=== PATIENT | female | born 1940 | race Caucasian/White ===

== ENCOUNTER → 2016-04-19 | Outpatient (CLI) | payer BC, MEDICARE ==
[2015-09-01 09:23] VITALS: BP 148/63
[~2016-04-19] MED LIST: ALLO300T PO; ASCO100065 PO; CHOL10003 PO; COLE1TAB2 PO; CYAN10005 PO; FURO20TA3 PO; GLIM4TAB2 PO; IRON1TAB PO; LOSA100T6 PO; METF10002 PO; METO-269 PO; OMEG1CAP6 PO; POTA20TA4 PO; SAXA5TAB PO; SIMV20TA3 PO
--- NOTE | 2016-04-19 16:28 | RAD ---
PROCEDURE MRI lumbar spine without contrast. HISTORY Low back pain and bilateral leg weakness for 4 months, greater on the left. No prior surgery. TECHNIQUE Sagittal T1, sagittal T2, sagittal STIR, axial T1, and axial T2 sequences are provided. COMPARISON None. FINDINGS Retrolisthesis at T12-L1 measures 3 millimeters. Anterolisthesis at L4-L5 measures 9 millimeters. Mild endplate edema along the superior endplate of L5 is probably degenerative in nature, minimal edema in the inferior endplate of L4 noted as well. There is no worrisome marrow lesion. There are probably vacuum discs at L3-L4 and L4-L5. There is diffuse disc desiccation. There appears to be partial partial fusion across T11-T12, some collapse of these 2 vertebral bodies. There is no edema at this level. The conus medullaris is normal in signal intensity and in position. The numbering system assumes 5 lumbar type vertebral bodies. Findings by individual level are as follows: T11-T12: Disc osteophyte complex and facet hypertrophy are noted. Thecal sac is minimally compressed, midline AP diameter 11 millimeters. There is minimal right foraminal narrowing. T12-L1: Mild disc bulge and minimal facet hypertrophy are noted with mild bilateral foraminal narrowing. L1-L2: Minimal disc bulge and facet hypertrophy are noted without canal or foraminal compromise. L2-L3: Minimal disc bulge and facet hypertrophy are noted without canal or foraminal compromise. L3-L4: There is a diffuse disc bulge and there is facet and ligamentum flavum hypertrophy. Midline AP diameter of the thecal sac is narrowed to 7-8 millimeters. There is mild lateral recess narrowing bilaterally. There is mild to moderate bilateral foraminal narrowing. Spur from the left facet joint contacts the exiting nerve root minimally. L4-L5: In addition to the anterolisthesis there is a diffuse disc bulge. There is facet and ligamentum flavum hypertrophy. There is fluid in the facet joints. There is severe canal stenosis with minimal CSF surrounding the nerve roots at this level. There is lateral recess narrowing bilaterally, high-grade, would explain an L5 radiculopathy on either side. There is also high-grade bilateral foraminal narrowing with both L4 nerve roots compressed. L5-S1: Minimal disc bulge is noted. Central annular fissure is present. There is facet hypertrophy. There is no canal stenosis. Exiting nerve root on the right is contacted by a spur from the facet joint. Canal stenosis is mild. Foraminal narrowing on the left is moderate, exiting nerve root contacted by a spur from the facet joint on the left as well. IMPRESSION Degenerative changes in the lumbar spine with high-grade canal stenosis at L4-L5. Foraminal narrowing noted from L3-L4 through L5-S1. Electronically signed by: Carlos Reynolds MD (Apr 19, 2016 16:26:56)
== END | disposition home or self-care (01) ==
LOC: MRI 14:00
PROVIDERS: ATTEND Physician Assistant Surgical
DX: M51.36 Other intervertebral disc degeneration, lumbar region (principal); R53.1 Weakness; M54.42 Lumbago with sciatica, left side; M54.41 Lumbago with sciatica, right side
CPT/HCPCS: 72148

== ENCOUNTER → 2016-05-09 | Outpatient (CLI) | payer BC, MEDICARE ==
[2015-09-01 09:23] VITALS: BP 148/63
[~2016-05-09] MED LIST changes: +ASPI-482 PO
== END | disposition home or self-care (01) ==
LOC: PNCL 07:53
PROVIDERS: ATTEND Anesthesiology
DX: M48.06 Spinal stenosis, lumbar region (principal)
CPT/HCPCS: G0463

== ENCOUNTER → 2016-05-20 | Outpatient (CLI) | payer BC, MEDICARE ==
[2015-09-01 09:23] VITALS: BP 148/63
[~2016-05-20] MED LIST changes: +IOHEXOL 180 MG/ML 10 ML VIAL. ONE; +methylPREDNISolone ACETATE 40 MG/ML VIAL. ONE; +methylPREDNISolone ACETATE 80 MG/ML VIAL. ONE
--- NOTE | 2016-05-21 05:15 | PAIN ---
DATE OF SERVICE: 05/20/2016 PROGRESS NOTE DIAGNOSES: Lumbar radiculopathy with lumbar degenerative disk disease and lumbar spinal stenosis. HISTORY OF PRESENT ILLNESS: The patient is a 75-year-old female who returns for followup status post initial evaluation and completion of physical therapy. She is unable to complete all because the pain in her left leg has become so severe that she is unable to participate in the satisfactory measure and capacity with the physical therapy. The patient returns, and her pain is a 4 to 5 on a scale of 10 in the low back, left lower extremity, primarily occasionally in the right leg as well, but essentially unchanged in the left side. The patient reports aches and has dull shooting pain in the left leg, mostly in the posterolateral aspect of the thigh, anterior thigh, medial lower leg, more on the left than the right, worse with weightbearing, much worse with walking and standing. The patient reports no new motor or sensory deficits, no new bowel or bladder incontinence or other complaints. PHYSICAL EXAMINATION: VITAL SIGNS: The patient's blood pressure 120/49, pulse 70, respirations 18, temperature 98.1 degrees Fahrenheit. Height is 4 feet 9 inches, weight is 188 pounds. GENERAL: The patient is awake, alert, oriented, appropriate, very pleasant demeanor. HEENT: Head shows normocephalic, atraumatic. Extraocular muscles are intact and symmetrical. Oral cavity, mucous membranes are moist and pink. Dentition is intact. NECK: Shows anterior throat supple without palpable lymphadenopathy noted. Swallow reflex is symmetrical. CHEST: Shows normal on inspection. Breath sounds are clear to auscultation bilaterally. HEART: Shows S1 and S2 clear. ABDOMEN: Soft, nontender, nondistended. No palpable organomegaly. There is no rebound or guarding demonstrated. BACK: Shows spine grossly midline. Slight exaggeration of thoracic kyphosis and mild flattening of lumbar lordotic curvature. Lumbar paraspinous muscle shows some moderate tenderness with palpation, but only diffusely bilaterally. The patient has good rotational motion as well as extension and flexion without difficulty in the lumbar spine. EXTREMITIES: Lower extremities showed deep tendon reflexes 1+ in the patellar and tendocalcaneus tendons. Motor exam is approximately 4/5 on the right and 3/5 on the left with quadriceps and hamstring flexion. Options were discussed with the patient. The patient's old chart was reviewed as her current medication regimen updated. Current review of systems updated today as well. We will proceed with a lumbar epidural steroid injection today with fluoroscopic guidance. Risks were again discussed including, but not limited to bleeding, infection, possibility of epidural hematoma, subsequent neurologic compromise, dural puncture, headaches, spinal cord and/or nerve damage, side effects of steroid medication and poor results regarding pain control. The patient understands and wishes to proceed. The patient will return to clinic in approximately 2 weeks for followup, was counseled on return appointment, activity level and side effects to be aware of. DIAGNOSES: Lumbar radiculopathy with lumbar degenerative disk disease, lumbar spinal stenosis. PROCEDURE: Lumbar epidural steroid injection, translaminar approach at the L4-L5 level using C-arm fluoroscopic guidance under sterile prep and drape using local anesthetic. MEDICATION INJECTED: 120 mg of Depo-Medrol plus 10 mL of preservative-free normal saline and 2 mL of Isovue contrast. CONDITION AT DISCHARGE: Stable. The patient tolerated procedure well, had no complications. VINEET DAUGHERTY MD DR: DOTTIE/celeste JOB#: [id number] / [id number]
== END | disposition home or self-care (01) ==
LOC: PNCL 09:22
PROVIDERS: ATTEND Anesthesiology
DX: M51.16 Intervertebral disc disorders with radiculopathy, lumbar region (principal); M48.06 Spinal stenosis, lumbar region; E78.00 Pure hypercholesterolemia, unspecified; I10 Essential (primary) hypertension; M19.90 Unspecified osteoarthritis, unspecified site; E11.9 Type 2 diabetes mellitus without complications; Z87.39 Personal history of other diseases of the musculoskeletal system and connective tissue; Z90.49 Acquired absence of other specified parts of digestive tract; Z98.51 Tubal ligation status
CPT/HCPCS: 62323; J1030; J1040

== ENCOUNTER → 2016-06-10 | Outpatient (CLI) | payer BC, MEDICARE ==
[2015-09-01 09:23] VITALS: BP 148/63
[~2016-06-10] MED LIST changes: -IOHEXOL 180 MG/ML 10 ML VIAL. ONE; -methylPREDNISolone ACETATE 40 MG/ML VIAL. ONE; -methylPREDNISolone ACETATE 80 MG/ML VIAL. ONE
--- NOTE | 2016-06-10 23:43 | PAIN ---
DATE OF SERVICE: 06/10/2016 DIAGNOSES: Lumbar radiculopathy with lumbar spinal stenosis, lumbar degenerative disk disease. HISTORY OF PRESENT ILLNESS: The patient is a 75-year-old female who returns for followup status post lumbar epidural steroid injection x 1. The patient reports approximately 50% improvement and is still doing her physical therapy, which she feels is helpful as well. The patient reports she is doing very well in her mind. The pain is still present in the low back, but worse with inclement weather and rain, which we had recently. The patient reports otherwise she is doing very well. She has had 2 days ____ she was here last, she had 0 pain, but other days, she still has some 1-2 on a scale of 10 pain in the low back itself, which is aching and dull in description. Leg is doing much better. However, the patient reports no new motor or sensory deficits, no new bowel or bladder incontinence. Very pleased with the progress and would like to complete her physical therapy before considering any other injections. PHYSICAL EXAMINATION: VITAL SIGNS: The patient's blood pressure 126/58, pulse 59, respirations 18, temperature 97.9 degrees Fahrenheit. Height is 4 foot 9 inches, weighs 188 pounds. GENERAL: The patient is awake, alert, oriented, appropriate, very pleasant demeanor. HEENT: Shows normocephalic, atraumatic. The patient wears eye glasses. Extraocular movements are intact and symmetrical. Oral cavity, mucous membranes moist and pink. Dentition is intact. NECK: Shows anterior throat supple without palpable lymphadenopathy noted. Swallow reflex is symmetrical. CHEST: Shows normal on inspection. Breath sounds are clear to auscultation bilaterally. HEART: Shows S1 and S2 clear. ABDOMEN: Soft, nontender, nondistended. No palpable organomegaly is noted. No rebound or guarding demonstrated. BACK: Shows spine grossly midline. Slight exaggeration of thoracic kyphosis and some mild tenderness with palpation in the lumbar paraspinous musculature diffusely, but symmetrical for the most part bilaterally without evidence of atrophy or hypertrophy. The patient shows good rotation and motion of the lumbar spine, both laterally as well as extension and flexion without significant pain or discomfort. EXTREMITIES: The patient's lower extremities showed deep tendon reflexes 1+ in the patellar and tendo calcaneus tendons. Motor exam is approximately 4 on scale of 5 on the right lower extremity and 3/5 in the left ankle with dorsiflexion, extension, quadriceps and hamstring flexion are approximately 4/5 and equal bilaterally. Options were discussed with the patient and the patient's old chart was reviewed as her current medication regimen and updated. Current review of systems updated to date as well. We will hold on any further injections until she completes physical therapy as prescribed. She has about 6 more sessions and will follow up after the physical therapy is completed. Consider an additional injection at that time if necessary. The patient understands and agrees and will follow up as scheduled. VINEET DAUGHERTY MD DR: DOTTIE/celeste JOB#: [id number] / [id number]
== END | disposition home or self-care (01) ==
LOC: PNCL 08:08
PROVIDERS: ATTEND Anesthesiology
DX: M51.16 Intervertebral disc disorders with radiculopathy, lumbar region (principal); M48.06 Spinal stenosis, lumbar region
CPT/HCPCS: G0463

== ENCOUNTER → 2016-07-12 | Outpatient (CLI) | payer BC, MEDICARE ==
[2015-09-01 09:23] VITALS: BP 148/63
[~2016-07-12] MED LIST changes: +IOHEXOL 180 MG/ML 10 ML VIAL. ONE; +methylPREDNISolone ACETATE 40 MG/ML VIAL. ONE; +methylPREDNISolone ACETATE 80 MG/ML VIAL. ONE
--- NOTE | 2016-07-12 23:40 | PAIN ---
DATE OF SERVICE: 07/12/2016 DIAGNOSES: Lumbar radiculopathy with lumbar spinal stenosis, lumbar degenerative disk disease. HISTORY OF PRESENT ILLNESS: The patient is a 75-year-old female who returns for followup status post lumbar epidural steroid injection x 1 on 06/10/2016. The patient reports she did well for about a month, she had about 50% improvement overall. Still pain in the low back and left greater than right lower extremity with walking and standing. The patient has difficulty sleeping she sleeps on her stomach, she feels much better and is getting better sleep. The patient reports, "everything feels tight" and left leg does have the weakness when she is standing and walking. She is using a walker to ambulate currently and has it with her today. The patient reports the pain is across the low back and the bilateral areas of the low back and the gluteus bilaterally and in the left leg posterior lateral aspect, lateral anterior thigh, medial thigh as well as the posterior thigh on the left side as aching, dull, sharp, shooting and tight radiating off and on, but not constant. The patient reports it anywhere from 3-8 on a scale of 10, 8 with activity, standing more than about 5-10 minutes. The patient reports no new motor or sensory deficits, no new bowel or bladder incontinence or other complaints. PHYSICAL EXAMINATION: VITAL SIGNS: Today, the patient's blood pressure 144/67, pulse 51, respirations 20, temperature 97.6 degrees Fahrenheit, height is 58 inches and the weight is 191 pounds. GENERAL: The patient is awake, alert, oriented, appropriate, very pleasant demeanor. HEENT: Head shows normocephalic, atraumatic. Extraocular movements are intact and symmetrical. Oral cavity, mucous membranes are moist and pink. Dentition is intact. NECK: Shows anterior throat supple without palpable lymphadenopathy noted. Swallow reflex is symmetrical. CHEST: Shows normal on inspection. Breath sounds are clear to auscultation bilaterally. HEART: Shows S1 and S2, clear. No murmurs auscultated. ABDOMEN: Soft, nontender, nondistended. No palpable organomegaly is noted. BACK: Shows spine grossly midline. Slight exaggeration of thoracic kyphosis and mild flattening of lumbar lordotic curvature. Lumbar paraspinous musculature shows symmetrical on appearance with palpation shows some [id number] tenderness in the low lumbar distribution without significant radiation. No asymmetry. Muscle girth is normal on palpation and symmetrical. The patient does show good rotational motion of lumbar spine, both laterally as well as extension and flexion without significant pain or difficulty. EXTREMITIES: Lower extremities show deep tendon reflexes 1+ in the patellar and tendo calcaneus tendons are equal. Motor exam is approximately 4 on a scale of 5 left ankle flexion now which is stronger than on previous exam and 4/5 on the right as well and is symmetrical. Options were discussed with the patient and the patient's old chart was reviewed as her current medication regimen updated. Current review of systems updated to date as well. We will proceed with a second lumbar epidural steroid injection with fluoroscopic guidance. Risks were again discussed including, but not limited to bleeding, infection, possibility of epidural hematoma, subsequent neurologic compromise, dural puncture, headaches, spinal cord and/or nerve damage, side effects of steroid medications, and poor results regarding pain control. The patient understands and wishes to proceed. The patient will return to clinic in approximately 2 weeks for followup. She was counseled on return appointment, activity level and side effects to be aware of. DIAGNOSES: Lumbar radiculopathy with lumbar degenerative disk disease and lumbar spinal stenosis. PROCEDURE: Lumbar epidural steroid injection in translaminar approach at the L4-L5 level using C-arm fluoroscopic guidance under sterile prep and drape using local anesthetic Medication injected 120 mg Depo-Medrol plus 10 mL of preservative-free normal saline and 2 mL Isovue for contrast. Condition on discharge is stable. The patient tolerated procedure well, had no complications. VINEET DAUGHERTY MD DR: DOTTIE/celeste JOB#: [id number] / [id number]
== END | disposition home or self-care (01) ==
LOC: PNCL 08:18
PROVIDERS: ATTEND Anesthesiology
DX: M51.16 Intervertebral disc disorders with radiculopathy, lumbar region (principal); M48.06 Spinal stenosis, lumbar region; E78.00 Pure hypercholesterolemia, unspecified; I10 Essential (primary) hypertension; E11.9 Type 2 diabetes mellitus without complications; M19.90 Unspecified osteoarthritis, unspecified site; Z90.49 Acquired absence of other specified parts of digestive tract; Z98.51 Tubal ligation status; Z98.41 Cataract extraction status, right eye; Z98.42 Cataract extraction status, left eye
CPT/HCPCS: 62323; J1030; J1040

== ENCOUNTER → 2016-10-15 | Outpatient (CLI) | payer BC ==
[2015-09-01 09:23] VITALS: BP 148/63
[~2016-10-15] MED LIST changes: -IOHEXOL 180 MG/ML 10 ML VIAL. ONE; +METF-620 PO; -METF10002 PO; -methylPREDNISolone ACETATE 40 MG/ML VIAL. ONE; -methylPREDNISolone ACETATE 80 MG/ML VIAL. ONE
--- NOTE | 2016-10-16 06:45 | PAIN ---
DATE OF SERVICE: 10/15/2016 PROGRESS NOTE FOR PAIN CLINIC DIAGNOSES: Lumbar radiculopathy with lumbar degenerative disk disease and lumbar spinal stenosis. HISTORY OF PRESENT ILLNESS: The patient is a 76-year-old female who returns for followup status post lumbar epidural steroid injection x 2. The patient reports she did well after her first injection, but the last one did not help. In fact, her pain was somewhat increased from the injection on 07/12/2016. The patient reports that this is improving with some physical therapy now to fairly a significant extent. She is quite pleased that she has only had 2 physical therapy treatments so far, but is doing much better, still some pain in the low back, right lower extremity and left lower extremity, worse on the right side, tingling, burning, aching, sharp, shooting, radiating, but off and on. It is only an 8 on a scale of 10 at its worse. It is a 3 on a scale of 10 currently. The patient reports otherwise doing fairly well. Still having to use a walker with ambulation. Reports that she awakens from sleep at night occasionally from pain, but not every night, but she repositions and gets back to sleep fairly quickly. The patient reports no new motor or sensory deficits. No new bowel or bladder incontinence or other complaints. She does not wish any further injections at this time. We will order physical therapy progress and see how she does with this as well as some home exercises that she is doing. PHYSICAL EXAMINATION: VITAL SIGNS: Today, the patient's blood pressure is 140/66, pulse 61, respirations 18, temperature 97.9 degrees Fahrenheit. Weight is 190 pounds, height is 58 inches. GENERAL: The patient is awake, alert, oriented, appropriate, very pleasant demeanor. HEENT: Head shows normocephalic, atraumatic. Extraocular movements are intact and symmetrical. Oral cavity, mucous membranes are moist and pink. Dentition is intact. NECK: Shows anterior throat supple without palpable lymphadenopathy noted. Swallow reflex is symmetrical. CHEST: Shows normal on inspection. Breath sounds are clear bilaterally. HEART: Shows S1 and S2 clear. BACK: Shows spine grossly in the midline. Lumbar paraspinous muscle shows some moderate tenderness to palpation, but only diffusely without atrophy or hypertrophy. EXTREMITIES: Lower extremities: Show deep tendon reflexes 1+ in the patellar and tendo calcaneus tendons. Motor exam is strong with approximately 4 on a scale of 5, but equal and symmetrical with dorsiflexion and extension. PLAN: Options were discussed with the patient. The patient's old chart was reviewed as her current medication regimen updated, current review of systems updated today as well. We will hold on any further injections. She will continue physical therapy as noted, will do her exercises and increase her activity as tolerated at home. We will follow up after physical therapy is completed if desired. VINEET DAUGHERTY MD DR: DOTTIE/celeste JOB#: [id number] / [id number]
== END | disposition home or self-care (01) ==
LOC: PNCL 10:00
PROVIDERS: ATTEND Anesthesiology
DX: M54.41 Lumbago with sciatica, right side (principal)
CPT/HCPCS: 99212

== ENCOUNTER → 2020-02-29 | Outpatient (CLI) | payer BC ==
[2015-09-01 09:23] VITALS: BP 148/63
[~2020-02-29] MED LIST changes: +CYAN-25 PO; -CYAN10005 PO; -GLIM4TAB2 PO; +GLIM4TAB8 PO; +LOSA100T14 PO; -LOSA100T6 PO; -METF-620 PO; +METF10007 PO; +SIMV20TA18 PO; -SIMV20TA3 PO
--- NOTE | 2020-02-29 15:59 | CARD ---
MR#: [id number] Date of Study: 02/29/2020 Ordering Physician: ROSALBA HOLT, Referring Physician: ROSALBA HOLT, Tech: Renea Little ANANYA APPROVED REPORT EXAM: Two-dimensional and M-mode echocardiogram with Doppler and color Doppler. Other Information Quality : AdequateHR: 67bpm Rhythm : Irregular INDICATION History of Afib. (Heart rate ranged from 40s-70s) 2D DIMENSIONS RVDd3.5 (2.9-3.5cm)IVSd1.3 (0.7-1.1cm) Aortic Root(2D)2.8 (2.0-3.7cm)LVDd4.8 (3.9-5.9cm) LVOT Diameter2.0 (1.8-2.4cm)PWd1.2 (0.7-1.1cm) LVDs3.0 (2.5-4.0cm)FS (%) 37.2 % SV73.2 mlLVEF(%)67.0 (>50%) Aortic Valve AoV Peak Alejandro.124.1cm/Nader Peak GR.6.2mmHg LVOT Peak Alejandro.65.3cm/sAVA (VMAX)1.61cm2 Mitral Valve MV E Umvzqpzd36.7cm/sMV DECEL [id number] MV A Ctlozyqm51.9cm/sE/A Ratio1.7 MV A Tusphgbh13nd Pulmonary Valve PV Peak Raudcbaw26.5cm/s Tricuspid Valve TR P. Urikjtfp074yp/sRAP HKMCHHSM69pqHw TR Peak Gr.42mmHg Pulmonary Vein S1 Hyncxxqy46.9cm/sD2 Wgetxatv89.3cm/s LEFT VENTRICLE The left ventricle is normal size. There is mild concentric left ventricular hypertrophy. Left ventri irma systolic function is normal. The Ejection Fraction is 60-65%. There is normal LV segmental wall m otion. RIGHT VENTRICLE The right ventricle is normal size. The right ventricular systolic function is normal. ATRIA The left atrium is severely dilated. The right atrium size is normal. The interatrial septum is intac t with no evidence for an atrial septal defect or patent foramen ovale as noted on 2-D or Doppler papi ging. AORTIC VALVE The aortic valve is normal in structure and function. Leaflets are mildly thickened and calcified. No aortic regurgitation. No aortic valvular stenosis. MITRAL VALVE The mitral valve is mildly thickened. Moderate mitral annular calcification. There is no mitral valve stenosis. Mild mitral regurgitation. TRICUSPID VALVE The tricuspid valve is normal in structure and function. Mild to moderate tricuspid regurgitation. Th e PA pressure was estimated at 50 mmHg. PULMONIC VALVE The pulmonary valve is normal in structure and function. Ttrace pulmonic valvular regurgitation. GREAT VESSELS The aortic root is normal in size. The ascending aorta is normal in size. The IVC is dilated and kaveh apses >50% with inspiration. PERICARDIAL EFFUSION There is no evidence of significant pericardial effusion. Critical Notification Critical Value: No <Conclusion> Left ventricle systolic function is normal. The Ejection Fraction is 60-65%. There is normal LV segmental wall motion. Mild mitral regurgitation. Mild to moderate tricuspid regurgitation. The PA pressure was estimated at 50 mmHg. There is no evidence of significant pericardial effusion. Signed by : Rosalba Holt, Electronically Approved : 02/29/2020 15:59:14
== END ==
LOC: ECHO 12:21
PROVIDERS: ATTEND Internal Medicine Cardiovascular Disease
DX: I08.3 Combined rheumatic disorders of mitral, aortic and tricuspid valves (principal); I48.0 Paroxysmal atrial fibrillation
CPT/HCPCS: 93306

== ENCOUNTER 2020-11-13 08:20 | Day surgery (SDC) | payer BC ==
[~2020-11-13] VITALS: Ht 147.3 cm; Wt 71.6 kg
[~2020-11-13 08:20] MED LIST changes: +AMIO200T6 PO; +APIX5TAB PO; +BIMA2.5D EACHEYE; +CALC-71 PO; +GABA600T7 PO; +IV RINGERS,LACTATED 1000ML 1,000 ML IV SCH; +LOPE1LIQ7 PO; +METF500T16 PO; +TIZA4TAB2 PO
[2020-11-13] MEDS ORDERED: INSULIN LISPRO 100 UNIT/ML 3ML VIAL for OP,RR ONLY. SQ PRN (08:45)
[2020-11-13 08:59] VITALS: BP 132/98
[2020-11-13 09:08] LABS: BASO # 0.1 x10^3/uL (0.0-0.2); BASO % 1 % (0-3); EOS # 0.2 x10^3/uL (0.0-0.7); EOS % 4 % (0-3); HEMATOCRIT 39.5 % (36.0-47.0); HEMOGLOBIN 12.9 g/dL (12.0-15.5); LYMPH # 1.6 x10^3/uL (1.0-4.8); LYMPH % 31 % (24-48); MEAN CORPUSCULAR HEMOGLOBIN 31 pg (25-35); MEAN CORPUSCULAR HGB CONC 33 g/dL (31-37); MEAN CORPUSCULAR VOLUME 96 fL (79-100); MONO # 0.4 x10^3/uL (0.0-1.1); MONO % 8 % (0-9); NEUT # 2.9 x10^3/uL (1.8-7.7); NEUT % 56 % (31-73); PLATELET COUNT 164 x10^3/uL (140-400); RED BLOOD COUNT 4.12 x10^6/uL (3.50-5.40); RED CELL DISTRIBUTION WIDTH 13.8 % (11.5-14.5); WHITE BLOOD COUNT 5.2 x10^3/uL (4.0-11.0)
--- NOTE | 2020-11-13 09:09 | EKG ---
[facility] [address] [place] [address] Test Date: 2020-11-13 Test Time: 09:05:52 Pat Name: REBECCA COWAN Department: Room: Gender: F Orthodontic Technician: : 1940 Requested By: ROSALBA GRIFFIN Order Number: [id number] Reading MD: Measurements Intervals [place] Rate: 101 P: MA: QRS: 25 QRSD: 102 T: -54 QT: 376 QTc: 495 Interpretive Statements IRREGULAR RHYTHM, NO P-WAVE FOUND QRS(T) CONTOUR ABNORMALITY CONSISTENT WITH ANTEROSEPTAL INFARCT AGE UNDETERMINED ST & T ABNORMALITY, CONSIDER INFERIOR ISCHEMIA OR LEFT VENTRICULAR STRAIN ABNORMAL ECG RI6.02 No previous ECG available for comparison
[2020-11-13 09:20] LABS: CALCIUM 9.8 mg/dL (8.5-10.1); CREATININE 1.6 mg/dL (0.6-1.0); GFR 30.9; POTASSIUM 3.9 mmol/L (3.5-5.1)
[2020-11-13 09:21] LABS: PROTHROMBIN TIME PATIENT 13.5 SEC (11.7-14.0)
[2020-11-13] MEDS ORDERED: LIDOCAINE 2% PF 5 ML VIAL. ONE (09:39)
[2020-11-13] MEDS ORDERED: PROPOFOL 10 MG/ML (20ML) VIAL. IV ONE ×2 (09:39)
--- NOTE | 2020-11-13 11:05 | EKG ---
[facility] [address] [place] [address] Test Date: 2020-11-13 Test Time: 10:36:06 Pat Name: REBECCA COWAN Department: Room: Gender: F English Composition Teacher: CITLALLI : 1940 Requested By: ROSALBA GRIFFIN Order Number: [id number] Reading MD: Measurements Intervals [place] Rate: 52 P: 64 UT: 176 QRS: 31 QRSD: 100 T: 11 QT: 442 QTc: 413 Interpretive Statements SINUS RHYTHM INCOMPLETE RIGHT BUNDLE BRANCH BLOCK OTHERWISE NORMAL ECG RI6.02 Compared to ECG 11/13/2020 09:05:52 Incomplete right bundle-branch block now present Myocardial infarct finding no longer present T-wave abnormality no longer present Possible ischemia no longer present
[2020-11-13 11:22] VITALS: BP 159/87
--- NOTE | 2020-11-13 15:10 | PDOC4 ---
Procedure Note Procedure: External cardioversion Indications: Atrial fibrillation Complications: None Procedural Details: After explaining the risk, benefits and alternative options, informed consent was obtained from patient. Anesthesiology team administered intravenous propofol for deep sedation. Patient was then given 200 J of synchronized biphasic DC shock therapy with successful conversion of patient rhythm from atrial fibrillation to sinus rhythm. Patient was hemodynamically stable without any neurological deficits at the end of procedure. She tolerated the procedure well. There were no immediate complications. Conclusions: Successful cardioversion of atrial fibrillation to sinus rhythm. ROSALBA GRIFFIN MD Nov 13, 2020 15:10
== END 2020-11-13 11:39 | disposition home or self-care (01) ==
LOC: SURG 08:20
PROVIDERS: ATTEND Internal Medicine Cardiovascular Disease
DX: I48.91 Unspecified atrial fibrillation (principal); I10 Essential (primary) hypertension; E78.00 Pure hypercholesterolemia, unspecified; E11.9 Type 2 diabetes mellitus without complications; G47.30 Sleep apnea, unspecified; M19.90 Unspecified osteoarthritis, unspecified site; Z90.49 Acquired absence of other specified parts of digestive tract; Z98.890 Other specified postprocedural states; Z79.899 Other long term (current) drug therapy; Z88.5 Allergy status to narcotic agent; Z88.2 Allergy status to sulfonamides; Z88.8 Allergy status to other drugs, medicaments and biological substances
CPT/HCPCS: 36415; 80048; 82962; 85025; 85610; 85730; 92960; 93005; J2704

== ENCOUNTER → 2021-06-26 | Outpatient (CLI) | payer BC ==
[~2021-06-26] MED LIST changes: +AMIO200T53 PO; -AMIO200T6 PO; -IV RINGERS,LACTATED 1000ML 1,000 ML IV SCH; +POTA-121 PO; -POTA20TA4 PO; +TIZA-75 PO; -TIZA4TAB2 PO
--- NOTE | 2021-06-26 16:13 | CARD ---
MR#: [id number] Date of Study: 06/26/2021 Ordering Physician: ROSALBA GRIFFIN, Referring Physician: ROSALBA GRIFFIN Tech: Do Oliver [facility] APPROVED REPORT EXAM: Two-dimensional and M-mode echocardiogram with Doppler and color Doppler. Other Information Quality : Technically LimitedHR: 70bpm Rhythm : Atrial Fibrillation INDICATION Atrial Fibrillation RISK FACTORS Hypertension Obesity 2D DIMENSIONS RVDd2.9 (2.9-3.5cm)Left Atrium(2D)4.8 (1.6-4.0cm) IVSd1.3 (0.7-1.1cm)Aortic Root(2D)3.3 (2.0-3.7cm) LVDd4.5 (3.9-5.9cm)LVOT Diameter2.1 (1.8-2.4cm) PWd1.3 (0.7-1.1cm)LVDs2.8 (2.5-4.0cm) FS (%) 38.2 %SV64.3 ml LVEF(%)68.6 (>50%) Aortic Valve AoV Peak Alejandro.96.5cm/sAoV VTI18.5cm AO Peak GR.3.7mmHgLVOT Peak Alejandro.65.1cm/s AO Mean GR.2mmHgAVA (VMAX)2.25cm2 Mitral Valve MV E Sjolvlal71.1cm/s Pulmonary Valve PV Peak Stcselzf90.6cm/s Tricuspid Valve TR P. [id number]/sTR Peak Gr.30mmHg LEFT VENTRICLE The left ventricle is normal size. There is mild concentric left ventricular hypertrophy. The left ve ntricular systolic function is low normal. The ejection fraction is estimated at 50%. RIGHT VENTRICLE The right ventricle is normal size. There is normal right ventricular wall thickness. The right ventr icular systolic function is normal. ATRIA The left atrium is mildly dilated. The right atrium is mildly dilated. The interatrial septum is inta ct with no evidence for an atrial septal defect or patent foramen ovale as noted on 2-D or Doppler im aging. AORTIC VALVE The aortic valve is normal in structure and function. Doppler and Color Flow revealed no significant aortic regurgitation. There is no significant aortic valvular stenosis. MITRAL VALVE Mitral annular calcification is mild. There is no evidence of mitral valve prolapse. There is no mitr al valve stenosis. Doppler and Color-flow revealed moderate mitral regurgitation. TRICUSPID VALVE The tricuspid valve is normal in structure and function. Doppler and Color Flow revealed mild to mode rate tricuspid regurgitation. Estimated PAP 40 mmHg. There is no tricuspid valve stenosis. GREAT VESSELS The aortic root is normal in size. The ascending aorta is normal in size. The IVC is dilated and kaveh apses <50% with inspiration. PERICARDIAL EFFUSION There is no evidence of significant pericardial effusion. Critical Notification Critical Value: No <Conclusion> The left ventricular systolic function is low normal. The ejection fraction is estimated at 50%. Moderate mitral regurgitation. Mild to moderate tricuspid regurgitation. Estimated PAP 40 mmHg. There is no evidence of significant pericardial effusion. Signed by : Rosalba Griffin, Electronically Approved : 06/26/2021 16:13:04
== END ==
LOC: ECHO 13:06
PROVIDERS: ATTEND Internal Medicine Cardiovascular Disease
DX: I08.1 Rheumatic disorders of both mitral and tricuspid valves (principal); I48.0 Paroxysmal atrial fibrillation
CPT/HCPCS: 93306; C8929